=== PATIENT | male | born 2005 | race Caucasian/White ===

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

== ENCOUNTER 2024-06-24 05:02 | Emergency (ER) | payer OTHER, MEDICAID, SELFPAY ==
[2024-06-24 05:07] VITALS: BP 110/64; PULSE 56; RESP 16; TEMP 36.8; O2SAT 100; BMI 18.1
--- NOTE | 2024-06-24 05:07 | ED_ITS ---
HPI - Seizure General Chief Complaint: Seizure Stated Complaint: seizure Time Seen by Provider: 06/24/24 05:05 Source: patient, RN notes reviewed and old records reviewed Mode of arrival: Ambulatory Limitations: no limitations History of Present Illness HPI Narrative: 19-year-old male with a reported seizure history. Patient has been seen here once before for similar complaint. Patient states he is seen Neurology, states his mom had not taken him to see Neurology. States that he has had seizures on and off usually every couple weeks. This morning he had 40 seizure-like activity for about 5-10 minutes. Patient does not recall the episode he was sleeping but girlfriend states she woke up next to him and then he was shaking sort of twitching of hands and generalized body. Was not planning. She states it lasted several minutes. She states he was in sort of slow to interact. She states he regained consciousness quite quickly but she would ask him questions and he seemed confused. She states he seems a little bit off still but has significantly improved. This happened about 4:00 a.m. or 430 in the morning. Patient has not had any fevers or chills, no chest pain or shortness of breath. He states he has a little bit of a headache. Denies any nausea or vomiting. No incontinence. No recent issues with bowel movements or urination. No cuts on his tongue or in his mouth. States he is supposed to be taking Keppra he thinks 500 mg daily, he states that he missed his doses intermittently. His last ED visit had him at 500 mg twice daily. Patient is unsure if he has had his medication adjusted by a physician or not. States he has not on any daily medications otherwise. Denies any prior surgeries. No known drug allergies. Does use tobacco daily, occasional alcohol, denies any recreational drugs besides marijuana. Patient states he is living with his girlfriend he does not currently live with his mother. He is unsure if he has a primary care physician. He thinks that he has a insurance. He has not attempted to set up follow up for himself. He did take a dose of Keppra 500 mg this morning after the episode witnessed by his girlfriend. Related Data Home Medications Medication Instructions Recorded Confirmed ibuprofen 200 mg tablet 200 mg PO TID ##0 09/16/17 Previous Rx's Medication Instructions Recorded levetiracetam 500 mg tablet 500 mg PO BID #60 tabs 11/17/23 (Keppra) levetiracetam 500 mg tablet 500 mg PO Q12H #60 tabs 06/24/24 (Keppra) Allergies Allergy/AdvReac Type Severity Reaction Status Date / Time No Known Drug Allergies Allergy Verified 11/17/23 10:08 Review of Systems Review of Systems ROS Unobtainable: All systems reviewed & are unremarkable except as noted in HPI and below Patient History Social History Smoking Status: Current every day smoker Smoking Status: Current every day smoker alcohol intake frequency: holidays/special occasions only Substance Use Type: marijuana Exam Narrative Exam Narrative: GEN: Thin male, alert and oriented x 3, patient appears to be in mild distress. HEENT: Atraumatic, pupils are equal round reactive to light, extraocular movements are intact, nares are clear, TMs are clear with no fluid, there is no conjunctival pallor. Throat is clear without any exudates, erythema, tonsillar enlargement or uvular deviation, no facial droop, no cuts or lacerations to the mouth HEART: Regular rate and rhythm without murmur, clicks, rubs. No carotid bruits, pulses are equal in upper and lower extremities LUNGS:Lungs clear to auscultation, no wheezes, rales, crackles, chest moves symmetrically ABD:bowel sounds normal, soft, non-tender, no guarding, rebound, rigidity, no masses noted, no hepatosplenomegaly MSCL: Non-tender, no muscle atrophy, muscles strength 5/5 upper and lower extremities, full range of motion, normal gait NEURO:CN 2-12 intact, sensation normal, reflexes 2/4 upper and lower extremities. finger nose finger test normal, heel neff test normal SKIN: No rash, erythema or other skin changes noted. Initial Vital Signs Initial Vital Signs: Vital Signs Temperature 98.3 F 06/24/24 05:07 Pulse Rate 56 L 06/24/24 05:07 Respiratory Rate 16 06/24/24 05:07 Blood Pressure 110/64 06/24/24 05:07 Pulse Oximetry 100 06/24/24 05:07 Oxygen Delivery Method Room Air 06/24/24 05:07 Course Orders Ordered: Discontinued Medications Sodium Chloride (Normal Saline 0.9%) 1,000 mls @ 1,000 mls/hr IV BOLUS ONE Stop: 06/24/24 06:23 Last Infusion: 06/24/24 06:16 Dose: Infused Documented By: Admin: 06/24/24 05:28 Dose: 1,000 mls/hr Documented By: Levetiracetam 500 mg/ Sodium (Chloride) 105 mls @ 420 mls/hr IV NOW ONE Stop: 06/24/24 05:25 Last Infusion: 06/24/24 06:00 Dose: Infused Documented By: Admin: 06/24/24 05:28 Dose: 420 mls/hr Documented By: Vital Signs Vital signs: Vital Signs - 8 hr 06/24/24 05:07 06/24/24 06:07 Temperature 98.3 F Pulse Rate 56 L 61 Respiratory Rate 16 20 Blood Pressure 110/64 124/72 Pulse Oximetry 100 98 Oxygen Delivery Method Room Air Room Air MDM - Seizure Lab Data 06/24/24 05:20 06/24/24 05:20 Labs: Lab Results 06/24/24 06/24/24 Range/Units 05:20 05:58 WBC 7.2 (4.5-11.0) X10^3/uL RBC 4.92 (4.5-5.9) X10^6/uL Hgb 15.0 (13.5-17.5) g/dL Hct 43.3 (41-53) % MCV 88.0 (80-100) fL MCH 30.5 (26-34) PG MCHC 34.6 (30-36) % RDW 14.0 (11.6-14.8) % Plt Count 207 (150-400) X10^3/uL Neut % (Auto) 38.9 L (50-75) % Lymph % (Auto) 48.9 H (25-40) % [place] % (Auto) 8.6 (3-14) % Eos % (Auto) 3.1 (2-4) % Baso % (Auto) 0.5 (0-2) % Neut # (Auto) 2800 (8558-2455) /uL Lymph # (Auto) 3500 (6281-4898) /uL [place] # (Auto) 600 (0-900) /uL Eos # (Auto) 200 (0-450) /uL Baso # (Auto) 0 (0-100) /uL Sodium 138 (137-145) mmol/L Potassium 4.0 (3.4-5.1) mmol/L Chloride 107 (98-107) mmol/L Carbon Dioxide 25 (22-32) mmol/L BUN 16 (9-20) mg/dL Creatinine 0.74 (0.66-1.25) mg/dL Estimated GFR > 60 (>60) mL/min BUN/Creatinine Ratio 21.6 (6-22) Glucose 90 (70-100) mg/dL Calcium 9.0 (8.4-10.2) mg/dL Total Bilirubin 0.5 (0.2-1.3) mg/dL AST 22 (17-59) IU/L ALT 17 (<50) IU/L Alkaline Phosphatase 51 (38-126) U/L Total Protein 6.7 (6.3-8.2) g/dL Albumin 4.3 (3.5-5.0) g/dL Globulin 2.4 (1.7-4.1) g/dL Albumin/Globulin Ratio 1.8 (1.0-2.8) U Opiates 300ng/mL cut Negative (Negative) Ur Oxycodone Screen Negative (Negative) Urine Methadone Screen Negative (Negative) Ur Barbiturates Screen Negative (Negative) U Tricyclic Antidepress Negative (Negative) Ur Phencyclidine Scrn Negative (Negative) Ur Amphetamines Screen Negative (Negative) U Methamphetamines Scrn Negative (Negative) Ur MDMA Scrn (Ecstasy) Negative (Negative) U Benzodiazepines Scrn Negative (Negative) Urine Cocaine Screen Negative (Negative) U Marijuana (THC) Screen Positive H (Negative) Urine pH Normal (Normal) Urine Specific [place] Normal (Normal) Ethyl Alcohol < 10 ( - 10) mg/dL Ur Creatinine Normal (Normal) Urine Dip Bedside Urine Glucose Negative Bedside Urine Bilirubin - Negative Bedside Urine Ketone - Negative Urine Specific [place] 1.015 Bedside Urine Occult Blood - Negative Bedside Urine pH 7.0 Bedside Urine Protein - Negative Bedside Urine Urobilinogen - Negative Bedside Urine Nitrite - Negative Bedside Urine Leukocytes - Negative Esterase ECG Data Attestation: I personally reviewed and interpreted this ECG as follows: Prior ECG tracings: available for review Interpretation: EKG sinus bradycardia rightward axis, rate of 55 [place] 146 QRS of 90 QTC 405. Patient has prior from 11/17/2023 which appears similar to today's. MDM Narrative Medical decision making narrative: 19-year-old male with reported seizure-like activity, according to his girlfriend she describes sort of mild generalized tonic-clonic activity for several minutes and then a postictal phase. Patient was seen once before here for possible seizures at that time was discharged home with Keppra 500 mg b.i.d.. Patient has been taking sounds like 500 mg daily intermittently and describes taking it most days. States he has had seizure activity every couple weeks. States that it seemed to improve after he left his mom's home. Patient has a little bit of a flat affect but otherwise is appropriate and conversant no acute neurologic changes. Patient had prior head CT in November 2023 that was negative. Labs white count 7.2 hemoglobin of 15 platelets 207, predominance of lymphocytes. Electrolytes are appropriate creatinine 0.74, glucose is 90 LFTs are negative. Etoh is negative. EKG sinus bradycardia rightward axis, rate of 55 [place] 146 QRS of 90 QTC 405, no changes from prior. poc is negative. UDS positive for marijuana Patient took 500 mg Keppra prior to arrival was given additional 500 mg here. Also given a L fluids. Rechecked patient is feeling much improved he is much more conversant has been able to answer questions. Discussed with patient he lives independently with his girlfriend states he was kicked out of the house he has a health insurance card he has not sure if it is active. He states he can call to set up follow up but has no known primary care currently. States he never saw the neurologist after he was discharged. Discussed if he would be open to be contacted by social work to help facilitate follow-up care patient is agreeable. Patient appears alert inappropriate we will send prescription return to 500 mg twice daily of the Keppra for now. We did discuss no driving vehicles, no high-risk activities. Discussed this with both patient in his girlfriend. He expressed understanding. Discharge Plan Departure Patient Disposition: Home Clinical Impression: Seizure Instructions: DI for Seizure Disorder -- Adult Activity Restrictions/Additional Instructions: You need to follow up with neurology, please call to set up an appointment. There is contact information included below. There is also a card that has primary care choices to set up follow up in the interim. Take your Keppra 500mg twice daily. A prescription was sent to [facility] in [place]. No driving until you are cleared by your physician. You should avoid activities where if you had a sudden loss of consciousness you would be harmed or killed. This includes swimming alone. Please return if recurrent or persistent seizure activity, seizures that last more than several minutes, if you have multiple seizures without any improvement in your mentation, fevers, persistent vomiting, difficulty with breathing, your weakness numbness or tingling or other new or concerning changes. Prescriptions: New levetiracetam [Keppra] 500 mg tablet 500 mg PO Q12H Qty: 60 0RF No Action ibuprofen 200 MG tablet 200 mg PO TID Qty: 0 levetiracetam [Keppra] 500 mg tablet 500 mg PO BID Qty: 60 0RF Referrals: Blair Paniagua MD, PHD [Non-Staff] - Miscellaneous,DoctorMD [Primary Care Provider] - Stand Alone Forms: Patient Portal/API
[2024-06-24] MEDS: levETIRAcetam 500 MG in SODIUM CHLORIDE 0.9% 100 ML 420 MG IV (05:28)
[2024-06-24] MEDS: SODIUM CHLORIDE 0.9% 1,000 ML 1000 ML IV (05:28)
--- NOTE | 2024-06-24 05:37 | EKG_ITS ---
[facility] [address] [place] [address] Test Date: 2024-06-24 Pat Name: Vega Gonzales Department: [facility] Room: Gender: Male Digital Design Engineer: WILLIAM : 2005 Requested By: Order Number: [id number] Reading MD: Derian Obregon Measurements Intervals [place] Rate: 55 P: 58 MS: 146 QRS: 90 QRSD: 98 T: 56 QT: 424 QTc: 405 Interpretive Statements Sinus bradycardia Rightward axis Electronically Signed On 06-24-2024 17:59:43 PDT by Derian Obregon
[2024-06-24 05:43] LABS: Add Manual Diff / Slide Review NO; Basophils Absolute Auto 0 /uL (0-100); Basophils Percent Auto 0.5 % (0-2); Eosinophils Absolute Auto 200 /uL (0-450); Eosinophils Percent Auto 3.1 % (2-4); Hematocrit 43.3 % (41-53); Lymphocytes Absolute Auto 3500 /uL (1100-4500); Lymphocytes Percent Auto 48.9 % (25-40); Mean Corpuscular HGB Conc 34.6 % (30-36); Mean Corpuscular Hemoglobin 30.5 PG (26-34); Monocytes Absolute Auto 600 /uL (0-900); Monocytes Percent Auto 8.6 % (3-14); Neutrophils Absolute Auto 2800 /uL (1500-7000); Neutrophils Percent Auto 38.9 % (50-75); Platelet Count 207 X10^3/uL (150-400); Red Blood Cell Count 4.92 X10^6/uL (4.5-5.9); White Blood Cell Count 7.2 X10^3/uL (4.5-11.0)
[2024-06-24 05:53] LABS: Alanine Aminotransferase 17 IU/L (<50); Albumin 4.3 g/dL (3.5-5.0); Albumin Globulin Ratio 1.8 (1.0-2.8); Alkaline Phosphatase 51 U/L (38-126); Aspartate Aminotransferase 22 IU/L (17-59); BUN Creatinine Ratio 21.6 (6-22); Bilirubin Total 0.5 mg/dL (0.2-1.3); Blood Urea Nitrogen 16 mg/dL (9-20); Carbon Dioxide 25 mmol/L (22-32); Chloride 107 mmol/L (98-107); Estimated Glomerular Filt Rate > 60 mL/min (>60); Globulin 2.4 g/dL (1.7-4.1); Glucose 90 mg/dL (70-100); Sodium 138 mmol/L (137-145); Total Protein 6.7 g/dL (6.3-8.2)
[2024-06-24 06:07] VITALS: BP 124/72; PULSE 61; RESP 20; O2SAT 98
[2024-06-24 06:19] LABS: UR Morphine/Opiate cutoff 300 Negative (Negative); Ur Creatinine Normal (Normal); Ur Specific Gravity Normal (Normal); Urine Amphetamines Negative (Negative); Urine Barbiturates Negative (Negative); Urine Benzodiazepines Negative (Negative); Urine Cocaine Negative (Negative); Urine MDMA Negative (Negative); Urine Methadone Negative (Negative); Urine Methamphetamines Negative (Negative); Urine Oxycodone Negative (Negative); Urine Phencyclidine Negative (Negative); Urine Tetrahydrocannabinol Positive (Negative); Urine Tricyclic Antidepressant Negative (Negative); Urine pH Normal (Normal)
[2024-06-24 06:21] LABS: Ethanol (ETOH) < 10 mg/dL; HEMOLYSIS 16 (0-50)
[2024-06-24 06:30] VITALS: BP 114/67; PULSE 51; RESP 21; O2SAT 99
[2024-06-24 07:00] VITALS: BP 113/91; PULSE 52; RESP 17; O2SAT 99
--- NOTE | 2024-06-27 17:49 | CM.SWNOTE ---
ED CONTRACT NEGOTIATOR Note: Pt is a 19yo male, resident of [place], presented to the ED due to a seizure. CONTRACT NEGOTIATOR was consulted to assist with follow up with a PCP. Pt was referred to [facility] (Dr. Blair Paniagua MD). CONTRACT NEGOTIATOR called pt number on file twice, spoke with pt mother. CONTRACT NEGOTIATOR left ED CONTRACT NEGOTIATOR number with pt mother, requesting pt call back. Plan: Pt to follow up with Neurology and PCP as soon as available. ED form grader on standby to support if needed. ROCK Santo
== END 2024-06-24 07:15 | disposition home or self-care (01) ==
PROVIDERS: Emergency Provider Emergency Medicine
DX: G40.909 Epilepsy, unspecified, not intractable, without status epilepticus (principal); R00.1 Bradycardia, unspecified; F12.90 Cannabis use, unspecified, uncomplicated
CPT/HCPCS: 80053; 80305; 80320; 81003; 85025; 93005; 96365; 99283; 99284; J1953